=== PATIENT | female | born 1935 | race Caucasian/White ===

== ENCOUNTER 2016-10-05 17:50 | Emergency (ER) | payer MEDICARE, OTHER ==
[~2016-10-05] VITALS: Ht 167.6 cm; Wt 70.0 kg
[~2016-10-05 17:50] MED LIST: ASPI325T PO; LORT5TAB PO; [UNRECOGNIZED DRUG - CODE] TOP
[2016-10-05 17:52] VITALS: BP 205/95; PULSE 102; RESP 20; TEMP 98.3; O2SAT 97
--- NOTE | 2016-10-05 18:06 | PD ---
Physical Exam Date Seen by Provider: Oct 05, 2016 Time Seen by Provider: 18:02 Data Data Last Documented VS Vital Signs Date Time Temp Pulse Resp B/P Pulse Ox O2 Delivery O2 Flow Rate FiO2 10/05/16 17:52 98.3 102 20 205/95 97 Room Air MDM Supervised Visit with PARDEEP: No Narrative Course 81 YO F with complaint of floaters in her vision since 09/29. Saw residential property tax appraiser yesterday, states "not ocular source." US at [facility] yesterday Saw primary care today, concern for carotid artery stenosis. Vitals reviewed. Awaiting bed placement. Graciela Mock Oct 05, 2016 18:06
[2016-10-05] MEDS ORDERED: HYDR12.56 PO (18:38)
[2016-10-05 19:19] LABS: AUTOMATED NEUTROPHIL # 3.7 TH/MM3 (1.8-7.7); BASOPHIL # 0.1 TH/MM3 (0-0.2); BASOPHIL % 1.3 % (0.0-2.0); EOSINOPHIL # 0.1 TH/MM3 (0-0.4); EOSINOPHIL % 1.7 % (0.0-4.0); HEMATOCRIT 46.1 % (35.0-46.0); HEMO FLAGS DIFF FINAL; LYMPH % 30.3 % (9.0-44.0); MEAN CELL VOLUME 97.5 FL (80.0-100.0); MEAN CORPUSCULAR HEMOGLOBIN 32.2 PG (27.0-34.0); MEAN CORPUSCULAR HGB CONC 33.1 % (32.0-36.0); MONO % 11.4 % (0.0-8.0); NEUT % 55.3 % (16.0-70.0); PLATELET COUNT 245 TH/MM3 (150-450); RED BLOOD COUNT 4.73 MIL/MM3 (4.00-5.30); RED CELL DISTRIBUTION WIDTH 13.8 % (11.6-17.2); WHITE BLOOD COUNT 6.7 TH/MM3 (4.0-11.0)
--- NOTE | 2016-10-05 19:21 | PD ---
HPI Chief Complaint: Medical Clearance Time Seen by Provider: 19:14 Travel History International Travel<30 days: No Contact w/Intl Traveler<30days: No Traveled to known affect area: No History of Present Illness HPI 81-year-old female that presents to the ED for evaluation of visual disturbances. Per patient she had an episode on Sunday where she was seen things that weren't there. Per patient it was more like colors and floaters. Per patient he lasted for most of Sunday night and got somewhat better. Per patient she went to see her eye doctor on Sunday, Dr Bowens who evaluated her and per patient did a full workup and was essentially told that this was not a visual problem or more of possible stenosis or brain. Patient had an ultrasound ordered by Dr. Bowens which was done yesterday and she did not get the results but she was able to follow with her doctor Dr. De Paz today to get evaluated for the visual disturbances. Patient comes here with a prescription stating this. Patient denies any symptoms at this time. Per patient the visual disturbances are no longer present. Per patient she had no pain. No numbness, tilling, weakness. Does not wear glasses. She does have a history of cataracts which were removed by Dr. Bowens before and has had no issues since. She denies any mentation issues. No fevers. No chills. Again no pain. No history of CVA. No history of ACS. Takes only hydrochlorothiazide and aspirin. PFSH Past Medical History Medical History: Denies Significant Hx Blood Disorders: No Cancer: No Cardiovascular Problems: Yes Diabetes: No Diminished Hearing: No Genitourinary: No Hiatal Hernia: No Immune Disorder: No Implanted Vascular Access Dvce: No Musculoskeletal: No Neurologic: No Psychiatric: No Reproductive: No Respiratory: No Thyroid Disease: No Menopausal: Yes Past Surgical History Abdominal Surgery: No Appendectomy: Yes Cardiac Surgery: No Ear Surgery: No Endocrine Surgery: No Eye Surgery: Yes (LEFT EYE CATARACT SX SEPTEMBER) Genitourinary Surgery: No Gynecologic Surgery: No Oral Surgery: No Pacemaker: No Thoracic Surgery: No Tonsillectomy: Yes Other Surgery: Yes (RIGHT INDEX FINGER I&D 2008; forehead sx) Social History Alcohol Use: Yes (OCCASIONAL) Tobacco Use: No Substance Use: No Allergies-Medications (Allergen,Severity, Reaction): Coded Allergies: No Known Allergies (Verified , 10/05/16) Reported Meds & Prescriptions Reported Meds & Active Scripts Active Reported Hydrochlorothiazide 12.5 Mg Tab Unknown Dose PO DAILY PRN Review of Systems Except as stated in HPI: all other systems reviewed are Neg Physical Exam Narrative GENERAL: SKIN: Warm and dry. HEAD: Atraumatic. Normocephalic. EYES: Pupils equal and round 4 mm reactive to light and accommodation. No scleral icterus. No injection or drainage. EOM intact bilaterally. Peripheral vision appears to be intact bilaterally. Funduscopic exam did not reveal any sign of papilledema or vessel disease but it is difficult to visualize. ENT: No nasal bleeding or discharge. Mucous membranes pink and moist. Tongue is midline. No uvula deviation. NECK: Trachea midline. No JVD. CARDIOVASCULAR: Regular rate and rhythm. No murmurs, S3, S4. RESPIRATORY: No accessory muscle use. Clear to auscultation. Breath sounds equal bilaterally. GASTROINTESTINAL: Abdomen soft, non-tender, nondistended. Hepatic and splenic margins not palpable. MUSCULOSKELETAL: Extremities without clubbing, cyanosis, or edema. No obvious deformities. Full range of motion of the upper and lower extremities bilaterally. 2+ pulses bilaterally. NEUROLOGICAL: Awake and alert. No obvious cranial nerve deficits. Motor grossly within normal limits. Five out of 5 muscle strength in the arms and legs. Normal speech. PSYCHIATRIC: Appropriate mood and affect; insight and judgment normal. Data Data Last Documented VS Vital Signs Date Time Temp Pulse Resp B/P Pulse Ox O2 Delivery O2 Flow Rate FiO2 10/05/16 20:25 94 18 174/96 97 Room Air 10/05/16 17:52 98.3 Orders Complete Blood Count With Diff (10/05/16 18:48) Basic Metabolic Panel (Bmp) (10/05/16 18:48) Prothrombin Time / Inr (Pt) (10/05/16 18:48) Act Partial Throm Time (Ptt) (10/05/16 18:48) Magnesium (Mg) (10/05/16 18:48) Thyroid Stimulating Hormone (10/05/16 18:48) Iv Access Insert/Monitor (10/05/16 18:48) Ecg Monitoring (10/05/16 18:48) Oximetry (10/05/16 18:48) Ct Brain W/O Iv Contrast(Rout) (10/05/16 ) Mri Brain W&W/O Contrast (10/05/16 ) Gadodiamide Pf Inj (Omniscan Pf Inj) (10/05/16 21:50) Labs Laboratory Tests Test 10/05/16 19:02 White Blood Count 6.7 TH/MM3 Red Blood Count 4.73 MIL/MM3 Hemoglobin 15.3 GM/DL Hematocrit 46.1 % Mean Corpuscular Volume 97.5 FL Mean Corpuscular Hemoglobin 32.2 PG Mean Corpuscular Hemoglobin 33.1 % Concent Red Cell Distribution Width 13.8 % Platelet Count 245 TH/MM3 Mean Platelet Volume 10.6 FL Neutrophils (%) (Auto) 55.3 % Lymphocytes (%) (Auto) 30.3 % Monocytes (%) (Auto) 11.4 % Eosinophils (%) (Auto) 1.7 % Basophils (%) (Auto) 1.3 % Neutrophils # (Auto) 3.7 TH/MM3 Lymphocytes # (Auto) 2.0 TH/MM3 Monocytes # (Auto) 0.8 TH/MM3 Eosinophils # (Auto) 0.1 TH/MM3 Basophils # (Auto) 0.1 TH/MM3 CBC Comment DIFF FINAL Differential Comment Prothrombin Time 10.7 SEC Prothromb Time International 1.0 RATIO Ratio Activated Partial 26.4 SEC Thromboplast Time Sodium Level 143 MEQ/L Potassium Level 3.7 MEQ/L Chloride Level 104 MEQ/L Carbon Dioxide Level 28.1 MEQ/L Anion Gap 11 MEQ/L Blood Urea Nitrogen 15 MG/DL Creatinine 0.86 MG/DL Estimat Glomerular Filtration 63 ML/MIN Rate Random Glucose 95 MG/DL Calcium Level 9.0 MG/DL Magnesium Level 2.3 MG/DL Thyroid Stimulating Hormone 1.570 uIU/ML [address] [place] [address] Medical Decision Making Medical Screen Exam Complete: Yes Emergency Medical Condition: Yes Medical Record Reviewed: Yes Interpretation(s) Last Impressions Head CT 10/05/16 0000 Signed Impressions: Service Date/Time: September 19:15 - CONCLUSION: Normal examination. Jonathon Mott MD Brain MRI 10/05/16 0000 Signed Impressions: Service Date/Time: September 21:32 - CONCLUSION: No acute intracranial findings Jonathon Mott MD CBC & BMP Diagram 10/05/16 19:02 TSH WNL Differential Diagnosis TIA versus CVA versus amaurosis fugax versus O abnormality versus hypertension versus hypertensive emergency versus stenosis Narrative Course 81-year-old female that presents to the ED for evaluation of visual disturbances. Patient was properly examined and was found to have signs and symptoms consistent appears to be what sounds to me like TIA. Patient has no other symptoms. Patient already had an ophthalmology evaluation to was essentially negative. I was able to get the ultrasound report of the car at this that was essentially negative showing only minimal stenosis. This was reviewed by my attending Dr. Foss. My attending Dr Foss recommends CT and labs and possible TBA for TIA. Labs and imaging here showed no sign of acute disease. MRI was ordered to rule out any sign of acute ischemia and this was also negative. Unclear etiology of the symptoms. My attending evaluated the patient with me and agrees with plan. Patient can be safely discharged with instructions to follow with neurology as well as PCP. Patient was told this and agrees with plan. Patient was also for possibility of admission but he declined at this time stating that she prefers going home. She understands reasons to come back. See ED worsening symptoms. Follow-up with PCP. Diagnosis Primary Impression: Visual disturbance Referrals: Amparo Ronquillo MD Patient Instructions: General Instructions Additional Instructions: F/u with PCP or Neurologist. See ED if worsening symptoms. Med/Other Pt SpecificInfo: No Change to Meds Disposition: 01 DISCHARGE HOME Condition: Stable Turner Mcintosh Oct 05, 2016 19:21
[2016-10-05 19:25] LABS: APTT (PATIENT) 26.4 SEC (24.3-30.1); PROTHROMBIN TIME - PATIENT 10.7 SEC (9.8-11.6)
--- NOTE | 2016-10-05 19:49 | RADRPT ---
EXAM DATE/TIME: 10/05/2016 19:15 [facility] COMPARISON: No previous studies available for comparison. INDICATIONS : Dizziness and visual impairment. RADIATION DOSE: 56.35 CTDIvol (mGy) MEDICAL HISTORY : None SURGICAL HISTORY : None. ENCOUNTER: Initial ACUITY: 3 days PAIN SCALE: 0/10 LOCATION: cranial TECHNIQUE: Multiple contiguous axial images were obtained of the head. Using automated exposure control and adj ustment of the mA and/or kV according to patient size, radiation dose was kept as low as reasonably a chievable to obtain optimal diagnostic quality images. FINDINGS: CEREBRUM: The ventricles are normal for age. No evidence of midline shift, mass lesion, hemorrhage or acute in farction. No extra-axial fluid collections are seen. POSTERIOR FOSSA: The cerebellum and brainstem are intact. The 4th ventricle is midline. The cerebellopontine angle i s unremarkable. EXTRACRANIAL: The visualized portion of the orbits is intact. SKULL: The calvaria is intact. No evidence of skull fracture. CONCLUSION: Normal examination. Jonathon Mott MD on October 05, 2016 at 19:46 Board Certified Radiologist. This report was verified electronically.
[2016-10-05 20:08] LABS: BICARBONATE 28.1 MEQ/L (21.0-32.0); MAGNESIUM 2.3 MG/DL (1.5-2.5); POTASSIUM 3.7 MEQ/L (3.5-5.1)
[2016-10-05 20:25] VITALS: BP 174/96; PULSE 94; RESP 18; O2SAT 97
[2016-10-05] MEDS ORDERED: GADODIAMIDE PF 287 MG/ML 5 ML VIAL (for RAD MRI) IV ONE (21:50)
--- NOTE | 2016-10-05 22:05 | RADRPT ---
EXAM DATE/TIME: 10/05/2016 21:32 [facility] COMPARISON: No previous studies available for comparison. INDICATIONS : TIA. Visual disturbance, both eyes. CONTRAST: 14 cc Omniscan (gadodiamide) IV MEDICAL HISTORY : None. SURGICAL HISTORY : Appendectomy. Cataracts. ENCOUNTER: Subsequent ACUITY: 3 day PAIN SCORE: 0/10 LOCATION: cranial TECHNIQUE: Multiplanar, multisequence MRI of the brain was performed both prior to and following the administrat ion of paramagnetic contrast. FINDINGS: CEREBRUM: The ventricles are normal for age. No evidence of midline shift, mass lesion, hemorrhage or acute in farction. No extraaxial fluid collections are seen. The pituitary gland and suprasellar cistern are normal in configuration. WHITE MATTER: Scattered punctate areas of white matter T2 prolongation which are likely benign microvascular ischem ic. POSTERIOR FOSSA: The cerebellum and brainstem are intact. The 4th ventricle is midline. The cerebellopontine angle is unremarkable. The cerebellar tonsils are normal in position. DIFFUSION IMAGING: No focal areas of restricted diffusion are seen. No evidence of acute infarction. EXTRACRANIAL: The visualized portions of the orbits and paranasal sinuses are unremarkable. POST-CONTRAST: No abnormal areas of parenchymal or dural enhancement. No evidence of blood-brain barrier breakdown. CONCLUSION: No acute intracranial findings Jonathon Mott MD on October 05, 2016 at 22:02 Board Certified Radiologist. This report was verified electronically.
--- NOTE | 2016-10-05 22:20 | PD ---
Data Data Last Documented VS Vital Signs Date Time Temp Pulse Resp B/P Pulse Ox O2 Delivery O2 Flow Rate FiO2 10/05/16 22:41 92 18 168/74 96 10/05/16 20:25 Room Air 10/05/16 17:52 98.3 Orders Complete Blood Count With Diff (10/05/16 18:48) Basic Metabolic Panel (Bmp) (10/05/16 18:48) Prothrombin Time / Inr (Pt) (10/05/16 18:48) Act Partial Throm Time (Ptt) (10/05/16 18:48) Magnesium (Mg) (10/05/16 18:48) Thyroid Stimulating Hormone (10/05/16 18:48) Iv Access Insert/Monitor (10/05/16 18:48) Ecg Monitoring (10/05/16 18:48) Oximetry (10/05/16 18:48) Ct Brain W/O Iv Contrast(Rout) (10/05/16 ) Mri Brain W&W/O Contrast (10/05/16 ) Gadodiamide Pf Inj (Omniscan Pf Inj) (10/05/16 21:50) Labs Laboratory Tests Test 10/05/16 19:02 White Blood Count 6.7 TH/MM3 Red Blood Count 4.73 MIL/MM3 Hemoglobin 15.3 GM/DL Hematocrit 46.1 % Mean Corpuscular Volume 97.5 FL Mean Corpuscular Hemoglobin 32.2 PG Mean Corpuscular Hemoglobin 33.1 % Concent Red Cell Distribution Width 13.8 % Platelet Count 245 TH/MM3 Mean Platelet Volume 10.6 FL Neutrophils (%) (Auto) 55.3 % Lymphocytes (%) (Auto) 30.3 % Monocytes (%) (Auto) 11.4 % Eosinophils (%) (Auto) 1.7 % Basophils (%) (Auto) 1.3 % Neutrophils # (Auto) 3.7 TH/MM3 Lymphocytes # (Auto) 2.0 TH/MM3 Monocytes # (Auto) 0.8 TH/MM3 Eosinophils # (Auto) 0.1 TH/MM3 Basophils # (Auto) 0.1 TH/MM3 CBC Comment DIFF FINAL Differential Comment Prothrombin Time 10.7 SEC Prothromb Time International 1.0 RATIO Ratio Activated Partial 26.4 SEC Thromboplast Time Sodium Level 143 MEQ/L Potassium Level 3.7 MEQ/L Chloride Level 104 MEQ/L Carbon Dioxide Level 28.1 MEQ/L Anion Gap 11 MEQ/L Blood Urea Nitrogen 15 MG/DL Creatinine 0.86 MG/DL Estimat Glomerular Filtration 63 ML/MIN Rate Random Glucose 95 MG/DL Calcium Level 9.0 MG/DL Magnesium Level 2.3 MG/DL Thyroid Stimulating Hormone 1.570 uIU/ML 3rd Gen [facility] Supervised Visit with PARDEEP: Yes Narrative Course I, Dr. Murillo], have reviewed the advance practice practitioner's documentation and am in agreement, met with the patient face to face, made the diagnosis, and the medical decision making was done by me. *My assessment and Findings: Patient seen and examined by me, she has complaints of seeing wavy lines in both eyes in all benoit of vision last night now resolved. She also states that she was seeing colors on the wall. States that this lasted for a few hours and then resolved. She states that she thought she was tired. She went to her eye doctor and eye exam which was completely normal but her senior asp net developer referred her for an ultrasound of her carotids which according to her was negative, this was confirmed by Turner ADAMES. The patient has a completely normal neurological exam at this time: She is alert and awake and oriented 3, cranial nerves II through XII are grossly intact nonfocal, visual benoit are intact in both eyes, neck shock movements are normal, no injection of drainage of either eye. Cerebellar testing is normal by finger nose finger and heel villa testing. She is able to ambulate with and even narrow based gait. Initial workup is negative including MRI of her brain. The etiology of her visual changes remains unknown. The patient was offered admission to the hospital for neurology consult but she would prefer to do this as an outpatient , think this is reasonable this time and she was given a referral to Dr. Jameson who she seen in the past. I think that it is also reasonable for her to see neurology given her history of chronic migraines. Diagnosis Primary Impression: Visual disturbance Disposition: 01 DISCHARGE HOME Condition: Stable Manpreet Murillo MD Oct 05, 2016 22:20
[2016-10-05 22:41] VITALS: BP 168/74
== END 2016-10-05 22:42 | disposition home or self-care (01) ==
LOC: NEPC 17:50
DX: H53.9 Unspecified visual disturbance (principal); Z79.899 Other long term (current) drug therapy
CPT/HCPCS: 70450; 70553; 80048; 83735; 84443; 85025; 85610; 85730; 99285; A9579

== ENCOUNTER 2017-04-19 14:34 | Emergency (ER) | payer MEDICARE, OTHER ==
[~2017-04-19] VITALS: Ht 165.1 cm; Wt 67.0 kg
[~2017-04-19 14:34] MED LIST changes: -ASPI325T PO; +HYDR12.56 PO; -LORT5TAB PO; -[UNRECOGNIZED DRUG - CODE] TOP
[2017-04-19 14:39] VITALS: BP 182/84; PULSE 90; RESP 18; TEMP 98; O2SAT 95
--- NOTE | 2017-04-19 15:27 | PD ---
HPI Chief Complaint: Skin Problem Time Seen by Provider: 15:16 Travel History International Travel<30 days: No Contact w/Intl Traveler<30days: No Traveled to known affect area: No History of Present Illness HPI 82-year-old female presents to emergency department with a lesion on the anterior right villa for approximately 1 month. Patient states that she was in her garden by 1 month ago stepped on a branch and was impaled. Patient was able to remove most the branch but suspects that there is a piece still in her villa. She is having pain. Patient says she went to her primary care physician who prescribed mupirocin but again continues to have tenderness to palpation. Patient has full range of motion of the extremity. Denies numbness or tingling. States the pain is mild to moderate with palpation. Patient denies fever or chills. Denies chronic medical issues. Patient does not smoke. PFSH Past Medical History Blood Disorders: No Cancer: No Cardiovascular Problems: Yes Diabetes: No Diminished Hearing: No Genitourinary: No Hiatal Hernia: No Immune Disorder: No Implanted Vascular Access Dvce: No Musculoskeletal: No Neurologic: No Psychiatric: No Reproductive: No Respiratory: No Thyroid Disease: No LMP: n/a Menopausal: Yes Past Surgical History Abdominal Surgery: No Appendectomy: Yes Cardiac Surgery: No Ear Surgery: No Endocrine Surgery: No Eye Surgery: Yes (LEFT EYE CATARACT SX SEPTEMBER) Genitourinary Surgery: No Gynecologic Surgery: No Oral Surgery: No Pacemaker: No Thoracic Surgery: No Tonsillectomy: Yes Other Surgery: Yes (RIGHT INDEX FINGER I&D 2008; forehead sx) Social History Alcohol Use: Yes (OCCASIONAL) Tobacco Use: No Substance Use: No Allergies-Medications (Allergen,Severity, Reaction): Coded Allergies: No Known Allergies (Verified Adverse Reaction, Unknown, 04/19/17) Reported Meds & Prescriptions Reported Meds & Active Scripts Active Bactrim DS (Sulfamethoxazole-Trimethoprim) 800-160 Mg Tab 1 Tab PO BID Reported Hydrochlorothiazide 12.5 Mg Tab Unknown Dose PO DAILY PRN Review of Systems Except as stated in HPI: all other systems reviewed are Neg Physical Exam Narrative GENERAL: Well-nourished, well-developed patient. SKIN: Focused skin assessment warm/dry. HEAD: Normocephalic. EYES: No scleral icterus. No injection or drainage. NECK: Supple, trachea midline. No JVD or lymphadenopathy. CARDIOVASCULAR: Regular rate and rhythm without murmurs, gallops, or rubs. RESPIRATORY: Breath sounds equal bilaterally. No accessory muscle use. GASTROINTESTINAL: Abdomen soft, non-tender, nondistended. MUSCULOSKELETAL: No cyanosis, or edema. Right anterior villa- 1 cm, starrate -shaped lesion tender to palpation. Mild surrounding erythema without fluctuance. BACK: Nontender without obvious deformity. No CVA tenderness. Data Data Last Documented VS Vital Signs Date Time Temp Pulse Resp B/P (MAP) Pulse Ox O2 Delivery O2 Flow Rate FiO2 04/19/17 15:55 04/19/17 14:39 98.0 90 18 95 Room Air Orders Orders Tibia/Fibula (Ap/Lat) (04/19/17 ) Ed Discharge Order (04/19/17 15:49) [facility] Medical Decision Making Medical Screen Exam Complete: Yes Emergency Medical Condition: Yes Differential Diagnosis Cellulitis, foreign body, abscess, granuloma Narrative Course 82-year-old female presents to emergency department with a lesion on the anterior right villa for approximately 1 month. Patient states that she was in her garden by 1 month ago stepped on a branch and was impaled. Patient was able to remove most the branch but suspects that there is a piece still in her villa. She is having pain. Patient says she went to her primary care physician who prescribed mupirocin but again continues to have tenderness to palpation. Patient has full range of motion of the extremity. Denies numbness or tingling. States the pain is mild to moderate with palpation. Patient denies fever or chills. Denies chronic medical issues. Patient does not smoke. Vital signs stable Physical exam findings consistent with granuloma versus cellulitis versus foreign body X-ray obtained- no evidence of foreign body. I explained to the patient that an x-ray may not completely rule out foreign body. Patient will be given antibiotics for concern of an infectious process. Patient advised to follow-up with dermatology if this does not resolve her discomfort. Advised to follow-up with her primary care physician within 2-3 days. Advised to return to the emergency department for worsening or persistent symptoms Diagnosis Primary Impression: Cellulitis Qualified Codes: L03.115 - Cellulitis of right lower limb Referrals: Primary Care Physician Additional Instructions: Follow up with your primary care physician within 2-3 days. Keep area clean and dry. You may use warm compresses You may bathe as normal. Take antibiotics as prescribed. If he developed increased redness, swelling, or pain return to the emergency department. Scripts Sulfamethoxazole-Trimethoprim (Bactrim DS) 800-160 Mg Tab 1 TAB PO BID for Infection, #14 TAB 0 Refills Prov: Karlos Min MD 04/19/17 Disposition: 01 DISCHARGE HOME Condition: Stable Scarlett Fiore Apr 19, 2017 15:27
--- NOTE | 2017-04-19 15:35 | RADRPT ---
EXAM DATE/TIME: 04/19/2017 15:28 [facility] COMPARISON: No previous studies available for comparison. INDICATIONS : Foreign body, middle anterior tibia. MEDICAL HISTORY : None. SURGICAL HISTORY : None. ENCOUNTER: Initial ACUITY: 1 month PAIN SCORE: 4/10 LOCATION: Right middle tibia. FINDINGS: Two view examination of the right tibia demonstrates no evidence of fracture or dislocation. Bony mi neralization is normal. The soft tissue structures are intact. CONCLUSION: Unremarkable examination of the right tibia. No foreign body is identified. Sánchez Ken MD on April 19, 2017 at 15:32 Board Certified Radiologist. This report was verified electronically.
[2017-04-19] MEDS ORDERED: BACT800T5 PO (15:48)
== END 2017-04-19 15:58 | disposition home or self-care (01) ==
LOC: NEPK 14:34
DX: L03.115 Cellulitis of right lower limb (principal)
CPT/HCPCS: 73590; 99283